=== PATIENT | male | born 1955 | race Caucasian/White ===

== ENCOUNTER 2017-07-29 08:36 | Day surgery (SDC) | payer BC ==
[~2017-07-29] VITALS: Ht 190.5 cm; Wt 104.3 kg
--- NOTE | ~2017-07-29 | EGD ---
EGD REPORT [facility] [address] [address] NAME: HOOD YIN : [birth year] STATUS : [place] [facility] [place]#: [id number] AGE: 61 ADM/REG DATE : 07/29/17 MR#: [id number] REPORT SERV DATE: 07/29/17 DICTATED BY: DATE: REPORT STATUS : Draft TRANSCRIBED BY: [employer] DATE: 07/29/17 [facility] Patient Name: Hood Yin Date of : 1955 Attending MD: PAZ WELLINGTON III, MD Procedure Date No Time: 07/29/2017 Procedure: Colonoscopy Indications: Screening for colorectal malignant neoplasm Referring MD: VU WHITNEY MD Medicines: Propofol per Anesthesia Complications: No immediate complications. Procedure: After I obtained informed consent, the scope was passed under direct vision. Throughout the procedure, the patient's blood pressure, pulse, and oxygen saturations were monitored continuously. The PCF [id number] was introduced through the anus and advanced to the cecum, identified by appendiceal orifice and ileocecal valve. The colonoscopy was performed with ease. The patient tolerated the procedure well. The quality of the bowel preparation was good. Findings: A sessile polyp was found in the cecum. The polyp was 10 mm in size. The polyp was removed with a cold snare. Resection and retrieval were complete. A sessile polyp was found in the transverse colon. The polyp was 12 mm in size. The polyp was removed with a hot snare. Resection and retrieval were complete. Internal hemorrhoids were found during retroflexion. Impression: - One 10 mm polyp in the cecum. Resected and retrieved. - One 12 mm polyp in the transverse colon. Resected and retrieved. - Internal hemorrhoids. Recommendation: - Patient has a contact number available for emergencies. The signs and symptoms of potential delayed complications were discussed with the patient. Return to normal activities tomorrow. Written discharge instructions were provided to the patient. - Discharge patient to home. - Return to previous diet. - Continue present medications. - Repeat colonoscopy after studies are complete for surveillance based on pathology results. EGD REPORT [address] [address] NAME: HOOD YIN : [birth year] STATUS : REG [facility]#: [id number] AGE: 61 ADM/REG DATE : 07/29/17 MR#: [id number] REPORT SERV DATE: 07/29/17 DICTATED BY: DATE: REPORT STATUS : Draft TRANSCRIBED BY: [employer] DATE: 07/29/17 Procedure Code(s): --- Professional --- 91588, Colonoscopy, flexible, proximal to splenic flexure; with removal of tumor(s), polyp(s), or other lesion(s) by snare technique Diagnosis Code(s): --- Professional --- D12.3, Benign neoplasm of transverse colon D12.0, Benign neoplasm of cecum K64.8, Other hemorrhoids Z12.11, Encounter for screening for malignant neoplasm of colon CPT copyright 2013 [employer]. All rights reserved. The codes documented in this report are preliminary and upon carton catcher review may be revised to meet current compliance requirements. PAZ WELLINGTON III, MD 07/29/2017 11:05 AM This report has been signed electronically. Number of Addenda: 0 Note Initiated On: 07/29/2017 10:34 AM Scope Withdrawal Time 0 hours 10 minutes 14 seconds [id number] [place] [address]
[~2017-07-29 08:36] MED LIST: ASAB PO; ECHINACEA125 MG PO; ECHINACEA400 MG PO; FISH-EPA1000 MG PO; FLECAINIDE150 MG PO; JANTOVEN10 MG PO; LOFIB160 PO; LOP25 PO; LOVENOX60 SC; NIACIN 500 PO; SAW PALMETT2 PO; TAMBOCOR150 MG PO; VITC500 PO; VITE PO
== END 2017-07-29 23:59 | disposition home or self-care (01) ==
LOC: DMU 08:36
PROVIDERS: Internal Medicine Gastroenterology
PROC: 0DBL8ZX Excision of Transverse Colon, Via Natural or Artificial Opening Endoscopic, Diagnostic (ICD-10-PCS; 2017-07-29)
PROC: 0DBH8ZX Excision of Cecum, Via Natural or Artificial Opening Endoscopic, Diagnostic (ICD-10-PCS; principal; 2017-07-29 09:30)
DX: Z12.11 Encounter for screening for malignant neoplasm of colon (principal); D12.0 Benign neoplasm of cecum; K63.5 Polyp of colon; K64.8 Other hemorrhoids; Z98.890 Other specified postprocedural states; Z88.8 Allergy status to other drugs, medicaments and biological substances; Z79.82 Long term (current) use of aspirin; Z79.899 Other long term (current) drug therapy
CPT/HCPCS: 88305